=== PATIENT | male | born 1950 | race Asian ===

== ENCOUNTER 2017-07-29 13:30 | Inpatient (IN) | payer MEDICARE, OTHER ==
[~2017-07-29] VITALS: Ht 162.6 cm; Wt 70.3 kg
[2017-08-05] MEDS ORDERED: MIDAZOLAM HCL 2 MG/2 ML VIAL IVP ONE (08:14)
[2017-08-05] MEDS ORDERED: FentaNYL CITRATE-PF 100 MCG/2 ML VIAL IVP ONE (08:14)
[2017-08-05] MEDS ORDERED: SODIUM CHLORIDE 0.9% 1,000 ML IV ONE ×2 (09:09→10:15)
[2017-08-05] MEDS ORDERED: TRIA1TAB91 PO (09:28)
[2017-08-05] MEDS ORDERED: ASPI81 PO (09:28)
[2017-08-05] MEDS ORDERED: PYRI50 PO (09:28)
[2017-08-05] MEDS ORDERED: METF500T4 PO (09:28)
[2017-08-05] MEDS ORDERED: ATOR20TA86 PO (09:28)
[2017-08-05 09:53] LABS: BASOPHILS # (AUTO) 0.03 K/uL (0.00-0.20); BASOPHILS % (AUTO) 0.4 % (0.0-2.0); EOSINOPHILS # (AUTO) 0.12 K/uL (0.00-0.70); EOSINOPHILS % (AUTO) 1.73 % (1.0-6.0); HEMATOCRIT 41.9 % (41-53); LYMPHOCYTES # (AUTO) 1.3 K/uL (1.0-4.8); LYMPHOCYTES % (AUTO) 19.3 % (22.0-44.0); MEAN CORPUSCULAR HEMOGLOBIN 31.1 pg (26.0-34.0); MEAN CORPUSCULAR HGB CONC 33.5 G/dL (31.0-37.0); MEAN CORPUSCULAR VOLUME 93 fL (80-100); MONOCYTES # (AUTO) 0.4 K/uL (0.1-1.0); MONOCYTES % (AUTO) 6.5 % (2.0-9.0); NEUTROPHILS # (AUTO) 4.9 K/uL (1.8-7.7); PLATELET COUNT (AUTO) 215 K/uL (150-450); RED BLOOD CELL COUNT(AUTO) 4.51 MIL/uL (4.50-5.90); RED CELL DISTRIBUTION WIDTH 13.5 % (11.5-14.5); WHITE BLOOD COUNT (AUTO) 6.8 K/uL (4.5-11.0)
[2017-08-05 09:57] LABS: ANION GAP 7 mmol/L (8-16); CALCIUM, TOTAL 8.3 mg/dL (8.8-10.5); CARBON DIOXIDE 29 mmol/L (22-29); CHLORIDE 105 mmol/L (98-107); CREATININE 0.94 mg/dL (0.60-1.30); GLOMERULAR FILTR. RATE CALC > 60 mL/min (>60); POTASSIUM 3.6 mmol/L (3.5-5.1); SODIUM SERUM 141 mmol/L (136-145); UREA NITROGEN, BLOOD 10 mg/dL (7-18)
[2017-08-05 10:00] LABS: PROTHROMBIN TIME 10.7 SEC (9.4-11.6)
[2017-08-05] MEDS ORDERED: LIDOCAINE HCL/PF 1% 30 ML VIAL ONE (14:16)
[2017-08-05] MEDS ORDERED: IOHEXOL 300 MG/ML 50 ML VIAL ONE (14:16)
[2017-08-05] MEDS ORDERED: SODIUM BICARBONATE 50 MEQ/50 ML VIAL ONE (14:16)
[2017-08-05] MEDS ORDERED: BUPIVACAINE LIPOSOME/PF 1.3%-13.3MG/ML SUSPENSION 10 ML VIAL INJ ONE (14:30)
[2017-08-05 14:40] VITALS: BP 159/89
[2017-08-05] MEDS ORDERED: LIDOCAINE 1% 30 ML/SOD BICARB 8.4% 4 ML SQ ONE (15:07)
[2017-08-05 16:03] VITALS: BP 155/92
[2017-08-05] MEDS ORDERED: DEXTROSE 50%-WATER 25 GM/50 ML SYRINGE IVP PRN (16:15)
[2017-08-05 16:40] VITALS: BP 138/60
[2017-08-05 16:55] VITALS: BP 129/62
[2017-08-05 16:58] VITALS: BP 133/93
[2017-08-05 20:10] VITALS: BP 123/84
[2017-08-05] MEDS ORDERED: SODIUM CHLORIDE 0.9% 250 ML IV ONE (20:17)
[2017-08-05] MEDS: CeFAZolin 1 GM/DEXTROSE 50 ML IV SCH (20:40)
[2017-08-05] MEDS: INSULIN ASPART 100 UNITS/ML SQ PRN (20:47)
[2017-08-05 23:09] LABS: GLUCOSE COMMENT 1 Received Meds; GLUCOSE,POINT OF CARE 147 MG/DL (70-110)
[2017-08-05 23:09] LABS: GLUCOSE,POINT OF CARE 81 MG/DL (70-110)
[2017-08-06 00:34] VITALS: BP 121/82
[2017-08-06] MEDS: CeFAZolin 1 GM/DEXTROSE 50 ML IV SCH ×2 (03:23→08:51)
[2017-08-06 05:30] VITALS: BP 147/80
[2017-08-06 06:12] LABS: GLUCOSE,POINT OF CARE 111 MG/DL (70-110)
[2017-08-06] MEDS: INSULIN ASPART 100 UNITS/ML SQ PRN (06:22)
[2017-08-06] MEDS ORDERED: MetFORMIN HCL 500 MG TABLET PO SCH (08:00)
[2017-08-06 09:00] VITALS: BP 131/82
[2017-08-06] MEDS ORDERED: ATORVASTATIN CALCIUM 20 MG TABLET PO SCH (09:00)
[2017-08-06] MEDS ORDERED: TRIAMTERENE/HCTZ 37.5-25 MG CAPSULE PO SCH (09:00)
[2017-08-06] MEDS ORDERED: ASPIRIN 81 MG CHEWABLE TABLET PO SCH (09:00)
[2017-08-06 11:18] VITALS: BP 125/79
[2017-08-06 15:42] VITALS: BP 128/77
[2017-08-08 23:17] LABS: GLUCOSE,POINT OF CARE 103 MG/DL (70-110)
== END 2017-08-06 17:45 | disposition home or self-care (01) | DRG 244 ==
LOC: 5S 08-05 08:52
PROVIDERS: ADMIT Internal Medicine Clinical Cardiac Electrophysiology; ATTEND Internal Medicine Clinical Cardiac Electrophysiology
PROC: 0JH606Z Insertion of Pacemaker, Dual Chamber into Chest Subcutaneous Tissue and Fascia, Open Approach (ICD-10-PCS; principal; 2017-08-05)
PROC: 02H63JZ Insertion of Pacemaker Lead into Right Atrium, Percutaneous Approach (ICD-10-PCS; 2017-08-05)
PROC: 02HK3JZ Insertion of Pacemaker Lead into Right Ventricle, Percutaneous Approach (ICD-10-PCS; 2017-08-05)
PROC: 4B02XSZ Measurement of Cardiac Pacemaker, External Approach (ICD-10-PCS; 2017-08-06)
DX: I49.5 Sick sinus syndrome (principal); I48.91 Unspecified atrial fibrillation; I10 Essential (primary) hypertension
CPT/HCPCS: 33208; 71020; 76000; 82962; 87081; 93005; J0690; J2250; J3010; J3490; J7030; J7050; Q9967